=== PATIENT | female | born 1995 | race Caucasian/White ===

== ENCOUNTER 2023-12-23 08:49 | Emergency (ER) | payer BC, OTHER ==
[~2023-12-23] VITALS: Ht 160 cm; Wt 54.4 kg
[~2023-12-23 08:49] MED LIST: BCP PO
[2023-12-23 08:51] VITALS: O2SAT 98
[2023-12-23 09:26] LABS: BASOPHILS % (AUTO) 0.3 % (0.0-2.0); EOSINOPHILS # (AUTO) 0.3 K/uL (0.0-0.7); EOSINOPHILS % (AUTO) 2.6 % (0.0-7.0); HEMATOCRIT 38.5 % (31.2-41.9); HEMOGLOBIN 13.1 g/dL (10.9-14.3); LYMPHOCYTES # (AUTO) 3.1 K/uL (0.8-4.8); LYMPHOCYTES % (AUTO) 30.5 % (20.5-51.5); MEAN CORPUSCULAR HEMOGLOBIN 30.7 uug (24.7-32.8); MEAN CORPUSCULAR HGB CONC 34 g/dL (32.3-35.6); MEAN CORPUSCULAR VOLUME 90.1 fL (75.5-95.3); MONOCYTES # (AUTO) 0.8 K/uL (0.1-1.30); MONOCYTES % (AUTO) 7.7 % (0.0-11.0); NEUTROPHILS # (AUTO) 6.1 K/uL (1.8-8.9); NEUTROPHILS % (AUTO) 58.9 % (38.5-71.5); PLATELET COUNT (AUTO) 247 K/uL (179-408); RED BLOOD CELL COUNT(AUTO) 4.27 MIL/uL (3.63-4.92); RED CELL DISTRIBUTION WIDTH 12.3 % (12.3-17.7); WHITE BLOOD COUNT (AUTO) 10.3 K/uL (3.8-11.8)
[2023-12-23 09:28] LABS: DIFFERENTIAL COMMENT 1
[2023-12-23 09:45] LABS: CALCIUM 9.1 mg/dL (8.5-10.1); CREATININE 0.8 mg/dL (0.6-1.3); POTASSIUM 3.4 mmol/L (3.5-5.1)
[2023-12-23] MEDS ORDERED: FLUT16SP16 BNOSTRILS (10:43)
[2023-12-23] MEDS ORDERED: AMOX-430 PO (10:43)
[2023-12-23] MEDS ORDERED: ACET1TAB23 PO (10:43)
[2023-12-23] MEDS ORDERED: OXYM15MI4 NS (10:43)
[2023-12-23] MEDS ORDERED: PSEU-249 PO (10:43)
[2023-12-23 10:47] VITALS: BP 89/55; TEMP 97.9
== END 2023-12-23 11:04 | disposition home or self-care (01) ==
LOC: ER 08:51
DX: R07.81 Pleurodynia (principal); J40 Bronchitis, not specified as acute or chronic; J32.9 Chronic sinusitis, unspecified; E87.6 Hypokalemia
CPT/HCPCS: 36415; 71101; 85025; A4606; A4663